=== PATIENT | male | born 1980 | race African-American/Black ===

== ENCOUNTER 2024-02-08 08:20 | Emergency (ER) | payer OTHER ==
[~2024-02-08] VITALS: Ht 180.3 cm; Wt 68.0 kg
[2024-02-08 08:22] VITALS: O2SAT 99
[2024-02-08] MEDS ORDERED: IBUP-1523 MT (11:08)
[2024-02-08] MEDS ORDERED: TOPUD MT (11:08)
[2024-02-08] MEDS: ACETAMINOPHEN 325MG TABLET PO ONE (11:24)
[2024-02-08] MEDS: IBUPROFEN 800MG TABLET PO ONE (11:25)
[2024-02-08 11:26] VITALS: BP 128/87; PULSE 75; RESP 16; TEMP 36.72516; O2SAT 99
== END 2024-02-08 11:30 | disposition home or self-care (01) ==
LOC: ER 08:30
DX: R51.9 Headache, unspecified (principal); Z20.822 Contact with and (suspected) exposure to COVID-19; Z98.890 Other specified postprocedural states; V49.9XXA Car occupant (driver) (passenger) injured in unspecified traffic accident, initial encounter; Y93.89 Activity, other specified; Y92.89 Other specified places as the place of occurrence of the external cause; Y99.8 Other external cause status
CPT/HCPCS: 87426; 87804; 99283